=== PATIENT | male | born 1940 | race Caucasian/White ===

== ENCOUNTER → 2018-02-26 | Outpatient (CLI) | payer MEDICARE, SELFPAY ==
[~2018-02-26] MED LIST: CEPH500 PO; CIPR500 PO; HYDACE5 PO; IBUP800 PO; PHENA100 PO; POLY17UD PO; PROM25 PO; TAMS.4ER PO
== END ==
LOC: LAB SHORT 13:38 → PLD 13:38
DX: C44.629 Squamous cell carcinoma of skin of left upper limb, including shoulder (principal)
CPT/HCPCS: 88305

== ENCOUNTER 2018-11-28 10:19 | Day surgery (SDC) | payer MEDICARE ==
[~2018-11-28] VITALS: Ht 172.7 cm; Wt 73.7 kg
[~2018-11-28 10:19] MED LIST changes: +Revlimid10 MG
[2018-11-28] MEDS ORDERED: ZOLEDRONIC ACID4 MG (11:21)
== END 2018-11-28 12:50 | disposition home or self-care (01) ==
LOC: ORSCSDS 10:19
PROVIDERS: Ophthalmology
PROC: 08RJ3JZ Replacement of Right Lens with Synthetic Substitute, Percutaneous Approach (ICD-10-PCS; principal; 2018-11-28 12:00)
DX: H25.11 Age-related nuclear cataract, right eye (principal); H21.81 Floppy iris syndrome; K21.9 Gastro-esophageal reflux disease without esophagitis; Z79.899 Other long term (current) drug therapy
CPT/HCPCS: J2001; J2250; J3010; J7120; V2632

== ENCOUNTER → 2022-08-23 | Outpatient (CLI) | payer MEDICARE ==
[~2022-08-23] MED LIST changes: +ZOLEDRONIC ACID4 MG
== END | disposition home or self-care (01) ==
LOC: LAB SHORT 15:05 → PLD 15:05
DX: C44.619 Basal cell carcinoma of skin of left upper limb, including shoulder (principal); C44.319 Basal cell carcinoma of skin of other parts of face; D04.39 Carcinoma in situ of skin of other parts of face; D22.4 Melanocytic nevi of scalp and neck
CPT/HCPCS: 88305

== ENCOUNTER → 2022-09-06 | Outpatient (CLI) | payer MEDICARE | END | disposition home or self-care (01) | LOC: PLD 12:10 → LAB SHORT 12:10 | DX: L57.0 Actinic keratosis (principal) | CPT/HCPCS: 88305 ==

== ENCOUNTER 2022-12-15 10:20 | Day surgery (SDC) | payer MEDICARE ==
[~2022-12-15] VITALS: Ht 165.1 cm; Wt 67.9 kg
[~2022-12-15 10:20] MED LIST changes: +ACYC400 PO; +Lisinopril-Hct1 EAC4 PO; +MIRALAX17 GM PO
--- NOTE | 2022-12-15 15:29 | NUR ---
PT BELLY APPEARS SLIGHTED ROUNDED. FABRICATION INSPECTOR TO ROOM. PT REPORTS IT APPEARS SLIGHTLY BIGGER THAN NORMAL. ABD SOFT. REPORTS DOES NOT CAUSE PAIN WHEN PALPATING (CHECKING TO SEE IF SOFT OR HARD). PT VSS. PT DOES NOT HAVE FEVER. PT NOT IN A GREAT DEAL OF PAIN PER PT. PT NOT SWEATING/DIAPHORETIC. FAMILY WITH PT. CLINICAL ACCOUNT LIAISON TO ROOM WHO STATES HIS BELLY IS BIGGER THAN IT WAS (PT WAS SITTING UP DRINKING WHEN THIS RN ASSUMED CARE). THIS RN CALLED INTO OR THAT DR GIRARD IS CURRENTLY IN, DISCUSSED WITH CAPSULE INSPECTOR WHO REPORTED THAT DR GIRARD WOULD BE OUT TO ASSESS PT AFTER SURGERY THAT HE IS IN. PT APPEARS STABLE AT THIS TIME.
--- NOTE | 2022-12-15 16:12 | NUR ---
PT BEEN NPO SINCE TALKING WITH EDUCATION PROFESSIONAL. PT RESTING QUIETLY. WHEN PT LYING FLAT ON BACK HIS ABD APPEARS MUCH FLATTER, DOES NOT APPEAR LIKE IT HAS ANY SWELLING. VSS. FAMILY PRESENT. DISCUSSED WITH PROTOZOOLOGIST.
--- NOTE | 2022-12-15 16:34 | NUR ---
DR GIRARD ASSESSING PT.FAMILY PRESENT. PT ABD APPEARS FLAT WHEN LYING FLAT ON BACK. DR GIRARD REPORTS MAY CONTINUE WITH DISCHARGE HOME. PT AND FAMILY REPORTS COMFORTABLE WITH PT GOING HOME THIS EVENING. VSS.
--- NOTE | 2022-12-15 16:50 | NUR ---
Patient up to Ambulate independently. Gait steady. Discharge instructions reviewed with patient. Patient verbalizes understanding. Copy given to patient to take home,FAMILY WELL. SCRIPT SENT WITH PAPERWORK. Patient States Post-Procedure ride home has been arranged. Discharged via wheelchair to private car for ride home. DR GIRARD BEEN TO SEE PT. PT ABLE TO WALK IN SDS WITHOUT DIFFICULTY OR ANY ASSISTANCE. PT REPORTS READY TO GO HOME, FAMILY REPORTS READY FOR PT TO GO HOME.DR GIRARD ASSESSED PT AND REPORTED THAT PT MAY BE DISCHARGED HOME NOW.
== END 2022-12-15 16:50 | disposition home or self-care (01) ==
LOC: ORSCMMR 10:20 → ORD 12:00 → ORSCMMR 16:50
PROVIDERS: Surgery
PROC: 0YU54JZ Supplement Right Inguinal Region with Synthetic Substitute, Percutaneous Endoscopic Approach (ICD-10-PCS; principal; 2022-12-15 12:00)
PROC: 8E0W4CZ Robotic Assisted Procedure of Trunk Region, Percutaneous Endoscopic Approach (ICD-10-PCS; principal; 2022-12-15 12:00)
PROC: 0WQF0ZZ Repair Abdominal Wall, Open Approach (ICD-10-PCS; principal; 2022-12-15 12:00)
PROC: 3E0M45Z Introduction of Adhesion Barrier into Peritoneal Cavity, Percutaneous Endoscopic Approach (ICD-10-PCS; principal; 2022-12-15 12:00)
DX: K40.90 Unilateral inguinal hernia, without obstruction or gangrene, not specified as recurrent (principal); K42.0 Umbilical hernia with obstruction, without gangrene; I12.9 Hypertensive chronic kidney disease with stage 1 through stage 4 chronic kidney disease, or unspecified chronic kidney disease; N18.9 Chronic kidney disease, unspecified; G62.9 Polyneuropathy, unspecified; E78.5 Hyperlipidemia, unspecified; Z79.899 Other long term (current) drug therapy
CPT/HCPCS: 49650; 49592; S2900; A9270; C1781; J0690; J1100; J2370; J2405; J2704; J3010; J7120

== ENCOUNTER → 2023-03-07 | Outpatient (CLI) | payer MEDICARE | LOC: LAB 12:05 → LAB SHORT 12:05 | DX: D48.5 Neoplasm of uncertain behavior of skin (principal) | CPT/HCPCS: 88305 ==

== ENCOUNTER → 2023-09-12 | Outpatient (CLI) | payer MEDICARE | LOC: LAB SHORT 11:51 → PLD 11:51 → LAB 11:51 | DX: D48.5 Neoplasm of uncertain behavior of skin (principal) | CPT/HCPCS: 88305 ==